=== PATIENT | female | born 1950 | race Caucasian/White ===

== ENCOUNTER 2017-01-29 17:09 | Inpatient (IN) ==
[2017-01-29] MEDS ORDERED: SALINE FLUSH 10ml SYRINGE IVF PRN (17:31)
[2017-01-29] MEDS ORDERED: ASPIRIN 81 MG CHEWABLE TABLET PO ONE (17:31)
[2017-01-29] MEDS: NITROGLYCERIN 0.4 MG SUBLINGUAL TABLET SL PRN ×3 (17:32→18:02)
--- NOTE | 2017-01-29 17:35 | Emergency Department Report ---
Chest Pain HPI - General Chief Complaint: Chest Pain <Ac Amaraln Q - 02/13/17 10:24> Stated Complaint: heart racing, cp <Ac Amaraln Q - 02/13/17 10:24> Time Seen by Provider: 01/29/17 17:22 <[place] Village[place] mcleod[place] - 02/13/17 10:24> Source: patient <Iris Fitzgerald Scott 01/29/17 17:36> Mode of arrival: wheelchair <Iris Fitzgerald 01/29/17 17:36> Limitations: no limitations <PoonamIris montanez 01/29/17 17:36> - History of Present Illness HPI narrative: Pt present with a c/o substernal chest pain and heart racing that started about 2 hours ago. Pt attempted to check her pulse and felt like it was about 100. Pt reports diaphoresis, and brief period of SOA but denies any cough or nausea <Iris Fitzgerald 01/29/17 17:36> MD complaint: chest pain <Iris Fitzgerald 01/29/17 17:36> Onset (ago): hour(s) <Iris Fitzgerald 01/29/17 17:36> Duration: constant <Iris Fitzgerald 01/29/17 17:36> Onset: during exertion <Iris Fitzgerald 01/29/17 17:36> Pain location: substernal <Iris Fitzgerald 01/29/17 17:36> Severity: moderate <Iris Fitzgerald 01/29/17 17:36> Quality: aching, heaviness <Iris Fitzgerald 01/29/17 17:36> Pain radiation: none <Iris Fitzgerald 01/29/17 17:36> Relieving factors: nothing <Iris Fitzgerald 01/29/17 17:36> Exacerbating factors: nothing <Iris Fitzgerald 01/29/17 17:36> - Related Data Home Medications Medication Instructions Recorded Confirmed LORazepam [Ativan] 0.5 mg PO DAILY PRN #0 07/22/08 01/29/17 Nitroglycerin 0.4 mg SL Q5MIN3 PRN #0 07/22/08 01/29/17 Levothyroxine Sodium 112 mcg PO ACB #0 07/25/12 01/29/17 Lisinopril 10 mg PO HS #0 07/25/12 01/29/17 hydroCHLOROthiazide 25 mg PO DAILY #0 07/25/12 01/29/17 [Hydrochlorothiazide] Aspirin [Aspirin EC] 81 mg PO DAILY 01/29/17 01/29/17 Metoprolol Succinate 50 mg PO DAILY 01/29/17 01/29/17 Omeprazole 40 mg PO ACB 01/29/17 01/29/17 Sucralfate [Carafate] 1 gm PO QID PRN 01/29/17 01/29/17 Previous Rx's Medication Instructions Recorded Atorvastatin [Lipitor] 1 tab PO HS #30 tab 01/31/17 Potassium Chloride [K-Dur] 20 meq PO WB #30 tab 01/31/17 <James Amaral Q - 02/13/17 10:24> Allergies Allergy/AdvReac Type Severity Reaction Status Date / Time No Known Drug Allergies Allergy Unknown Verified 01/29/17 17:16 <James Amaral Q - 02/13/17 10:24> Review of Systems All systems: reviewed and negative except as stated <Iris Fitzgerald 17:36> Constitutional: Denies: fever, chills <Iris Fitzgerald 01/29/17 17:36> Cardiovascular: Reports: chest pain, palpitations <Iris Fitzgerald 17:36> Respiratory: Reports: dyspnea. Denies: cough <Iris Fitzgerald 01/29/17 17:36> Gastrointestinal: Denies: abdominal pain, nausea, diarrhea <Iris Fitzgerald 01/29/17 17:36> Musculoskeletal: Denies: back pain <Iris Fitzgerald 01/29/17 17:36> Neurological: Denies: headache <Iris Fitzgerald 01/29/17 17:36> [facility] Patient Stated Medical History Other HEENT Yes: Wears glasses Hypertension Yes Gastroesophageal Reflux Yes Disease Hx Urinary Tract Infection Yes Osteoarthritis Yes Shingles Yes Clinic Medical History Myocardial infarct (Acute Medical) Chest pain due to psychological stress (Acute Medical) Chest pain not due to acute coronary syndrome (Acute Medical) <[place] Q - 02/13/17 10:24> Patient Stated Medical History Other HEENT Yes: Wears glasses Hypertension Yes Gastroesophageal Reflux Yes Disease Hx Urinary Tract Infection Yes Osteoarthritis Yes Shingles Yes Clinic Medical History Myocardial infarct (Acute Medical) Chest pain due to psychological stress (Acute Medical) Chest pain not due to acute coronary syndrome (Acute Medical) <Iris Fitzgerald 01/29/17 21:33> Physical Exam - Limitations Limitations: no limitations <Iris Fitzgerald 01/29/17 17:36> - General General appearance: alert, in no apparent distress <Iris Fitzgerald 01/29 17:36> - Normal Exams: Head:: Normocephalic without trauma <Iris Fitzgerald 01/29/17 17:36> Neck:: Full range of motion, without adenopathy <Iris Fitzgerald 17:36> Chest/Respirations:: Clear all pena, with good airflow, and symmetry bilaterally <Iris Fitzgerald 01/29/17 17:36> Cardiovascular:: Regular rate and rhythm, without murmur or gallop, Pulses 2+ all extremities, capillary refill, <2 seconds all extremities <Iris Fitzgerald 01/29/17 17:36> Abdomen:: Bowel sounds positive, soft, non-tender, non-distended <Iris Fitzgerald 01/29/17 17:36> Musculoskeletal:: No tenderness, or deformity noted, good range of motion, all extremities <Iris Fitzgerald 01/29/17 17:36> Integumentary:: No rashes <Iris Fitzgerald 01/29/17 17:36> Neurological:: Patient is alert, and oriented, cranial nerves, motor/sensory/ cerebellar, exams w/o gross deficits, to observation <Iris Fitzgerald 17:36> Psychiatric:: Patient exhibits, appropriate attention, emotion and affect < Iris Fitzgerald 01/29/17 17:36> Course Vital Signs Temperature 98.3 F 01/29/17 17:17 Pulse Rate 83 01/29/17 17:17 Respiratory Rate 22 01/29/17 17:17 Blood Pressure 193/82 H 01/29/17 17:17 Pulse Oximetry 98 01/29/17 17:17 Temperature 97.7 F 01/31/17 10:15 Pulse Rate 55 L 01/31/17 14:13 Respiratory Rate 20 01/31/17 10:15 Blood Pressure 164/80 H 01/31/17 14:13 Pulse Oximetry 98 01/31/17 14:13 <James Amaral Q - 02/13/17 10:24> Chest Pain - MDM Narrative Medical decision making narrative: Lab, EKG, and Xray reviewed. CHest pain relieved with 2 SL NTG. 2/2 onset of symptoms and time of Troponin draw repeat draw obtained and bump noted. Dr Lugo notified. Repeat EKG obtained and sent to Dr Lugo. Pt to be admitted to CCU <Iris Fitzgerald - 01/29/17 21:36> - Differential Diagnosis Likely: stable angina, unstable angina pectoris, atypical chest pain, chest pain <Iris Fitzgerald - 01/29/17 17:36> - Lab Data Attestation: I reviewed the patient's lab results. <Iris Fitzgerald - 01/29 21:36> Result diagrams: 01/29/17 17:44 01/30/17 14:01 <James Amaral Q - 02/13/17 10:24> Lab Results 01/29/17 01/29/17 01/29/17 Range/Units 17:44 17:44 20:08 WBC 9.1 (4.5-11.0) T/MM3 RBC 4.46 (4.00-5.20) M/MM3 Hgb 13.9 (12-16) GM/DL Hct 42.8 (36-46) % MCV 96.0 (80-100) UM3 MCH 31.2 (26-34) UUG MCHC 32.5 (31-37) GM/DL RDW Std Deviation 46.7 (36.9-50.2) FL Plt Count 193 (130-400) T/MM3 MPV 10.5 (9.4-12.4) UM3 Immature Gran % (Auto) 0.1 (0.0-0.5) % Neut % (Auto) 72.9 H (33-66) % Lymph % (Auto) 14.7 L (23-45) % [place] % (Auto) 11.1 H (0-9.0) % Eos % (Auto) 1.0 (0-4) % Baso % (Auto) 0.2 (0-2) % Neut # (Auto) 6.6 (1.8-7.7) T/MM3 Lymph # (Auto) 1.3 (1-4.8) T/MM3 [place] # (Auto) 1.0 H (0-0.8) T/MM3 Eos # (Auto) 0.1 (0-0.5) T/MM3 Baso # (Auto) 0.0 (0-0.2) T/MM3 Abs Immat Gran (auto) 0.01 (0.00-0.03) T/MM3 Turbidity < 20 (0-20) Sodium 143 (134-144) MEQ/L Potassium 3.1 L (3.6-5) MEQ/L Chloride 101 (98-107) MEQ/L Carbon Dioxide 28 (22-30) MEQ/L Anion Gap 14 (5-15) MEQ/L BUN 20.0 H (7-17) MG/DL Creatinine 0.9 (0.7-1.2) MG/DL GFR Calculation 63 BUN/Creatinine Ratio 22 (6-26) RATIO Glucose 100 (65-110) MG/DL Calculated Osmolality 278 (261-280) MOSM/KG Calcium 9.6 (8.4-10.2) MG/DL Icterus Index < 2 (0-7) Troponin I < 0.012 0.067 D (0-0.12) ng/ml B-Natriuretic Peptide 206 H (0-175) pg/mL Specimen Hemolysis < 15 < 15 (0-25) <James Amaral Q - 02/13/17 10:24> Lab Results 01/29/17 01/29/17 01/29/17 Range/Units 17:44 17:44 20:08 WBC 9.1 (4.5-11.0) T/MM3 RBC 4.46 (4.00-5.20) M/MM3 Hgb 13.9 (12-16) GM/DL Hct 42.8 (36-46) % MCV 96.0 (80-100) UM3 MCH 31.2 (26-34) UUG MCHC 32.5 (31-37) GM/DL RDW Std Deviation 46.7 (36.9-50.2) FL Plt Count 193 (130-400) T/MM3 MPV 10.5 (9.4-12.4) UM3 Immature Gran % (Auto) 0.1 (0.0-0.5) % Neut % (Auto) 72.9 H (33-66) % Lymph % (Auto) 14.7 L (23-45) % [place] % (Auto) 11.1 H (0-9.0) % Eos % (Auto) 1.0 (0-4) % Baso % (Auto) 0.2 (0-2) % Neut # (Auto) 6.6 (1.8-7.7) T/MM3 Lymph # (Auto) 1.3 (1-4.8) T/MM3 [place] # (Auto) 1.0 H (0-0.8) T/MM3 Eos # (Auto) 0.1 (0-0.5) T/MM3 Baso # (Auto) 0.0 (0-0.2) T/MM3 Abs Immat Gran (auto) 0.01 (0.00-0.03) T/MM3 Turbidity < 20 (0-20) Sodium 143 (134-144) MEQ/L Potassium 3.1 L (3.6-5) MEQ/L Chloride 101 (98-107) MEQ/L Carbon Dioxide 28 (22-30) MEQ/L Anion Gap 14 (5-15) MEQ/L BUN 20.0 H (7-17) MG/DL Creatinine 0.9 (0.7-1.2) MG/DL GFR Calculation 63 BUN/Creatinine Ratio 22 (6-26) RATIO Glucose 100 (65-110) MG/DL Calculated Osmolality 278 (261-280) MOSM/KG Calcium 9.6 (8.4-10.2) MG/DL Icterus Index < 2 (0-7) Troponin I < 0.012 0.067 D (0-0.12) ng/ml B-Natriuretic Peptide 206 H (0-175) pg/mL Specimen Hemolysis < 15 < 15 (0-25) <Iris Fitzgerald R - 01/29/17 21:33> - Radiology Data Attestation: I reviewed the patient's radiology results. <Iris Fitzgerald R 01/29/17 21:36> - EKG Data EKG #1 EKG attestation: Yes: I reviewed and interpreted this EKG. <July,[facility] 21:04> EKG shows normal: sinus rhythm, axis <July,[facility] 01/29/17 21:04> Rate: normal <July,[facility] 01/29/17 21:04> P waves: LAE <July,[facility] 01/29/17 21:04> ST segment depression in: II, aVF, v4, v5 <eb 01/29/17 21:04> EKG #2 EKG attestation: Yes: I reviewed and interpreted this EKG. <eb 21:40> EKG shows normal: sinus rhythm, axis, intervals, QRS complexes, ST-T waves < July,[facility] 01/29/17 21:40> Rate: normal <July,[facility] 01/29/17 21:40> Disposition Clinical Impression: Myocardial infarct Qualifiers: Myocardial infarction ST status: non-ST elevation myocardial infarction Qualified Code(s): I21.4 - Non-ST elevation (NSTEMI) myocardial infarction <CristinJames - 02/13/17 10:24> Disposition: 02 To [facility] Acute Care <James Amaral - 02/13/17 10:24> Condition: Stable <James Amaral - 02/13/17 10:24> Instructions: <James Amaral - 02/13/17 10:24> Prescriptions: New Potassium Chloride [K-Dur] 20 meq PO WB #30 tab Atorvastatin [Lipitor] 1 tab PO HS #30 tab Continue Nitroglycerin 0.4 mg SL Q5MIN3 PRN #0 PRN Reason: Chest Pain hydroCHLOROthiazide [Hydrochlorothiazide] 25 mg PO DAILY #0 Levothyroxine Sodium 112 mcg PO ACB #0 Lisinopril 10 mg PO HS #0 Omeprazole 40 mg PO ACB Aspirin [Aspirin EC] 81 mg PO DAILY Sucralfate [Carafate] 1 gm PO QID PRN PRN Reason: Prn Orders LORazepam [Ativan] 0.5 mg PO DAILY PRN #0 PRN Reason: Anxiety Metoprolol Succinate 50 mg PO DAILY Discontinued Simvastatin 40 mg PO HS #0 <James Amaral Q - 02/13/17 10:24> Referrals: Ingrid Santamaria MD [Family Provider] - <James Amaral Q - 02/18 10:24> Forms: <James Amaral Q - 02/13/17 10:24> Time of Disposition: 21:36 <Iris Fitzgerald - 01/29/17 21:36> - Seen By: midlevel <Iris Fitzgerald - 01/29/17 21:36>
[2017-01-29] MEDS ORDERED: ENOXAPARIN 120 MG/0.8 ML INJECTION SQ ONE (21:00)
[2017-01-29] MEDS ORDERED: NITROGLYCERIN 2% OINTMENT 1gm PACKET TP ONE (21:27)
[2017-01-30 00:16] VITALS: BMI 39.2
[2017-01-30] MEDS ORDERED: NS 1,000 ML IV SCH (06:00)
--- NOTE | 2017-01-30 08:27 | XRay Report ---
INDICATION: chest pain PROCEDURE: CHEST 2-VIEWS UPRIGHT (PA & LAT) Encounter: Initial COMPARISON: None FINDINGS: Hazy lower lung zone opacities and interstitial prominence. Upper lung pena are grossly clear. No pleural effusion or pneumothorax. The heart size, pulmonary vascularity and mediastinal contours are within limits. No significant skeletal abnormality seen. Impression: Basilar predominant airspace opacities could be due to mild edema or atypical/viral pneumonia. .
[2017-01-30] MEDS ORDERED: ASPIRIN 325 MG TABLET PO SCH (09:00)
[2017-01-30] MEDS ORDERED: ENOXAPARIN 120 MG/0.8 ML INJECTION SQ SCH (09:00)
[2017-01-30] MEDS: NITROGLYCERIN 2% OINTMENT 1gm PACKET TP SCH ×2 (10:27→18:42)
[2017-01-30] MEDS ORDERED: NITROGLYCERIN 0.4 MG SUBLINGUAL TABLET SL PRN (13:09)
[2017-01-30] MEDS ORDERED: LORazepam 0.5 MG TABLET PO PRN (13:09)
[2017-01-30] MEDS ORDERED: SUCRALFATE 1 GM TABLET PO PRN (13:09)
[2017-01-30] MEDS: NS 1,000 ML IV SCH (19:28)
--- NOTE | 2017-01-30 20:00 | Cardiology History & Physical ---
History of Present Illness Chief complaint: chest discomfort HPI: patient was seen about 11am Buddy is a 66-year-old female well known to me with history of a chronic exertional chest tightness and personal history of hypertension dyslipidemia and nonocclusive carotid artery stenosis. She's had previous heart catheterization in July 2008 showed some distal narrowing of the LAD where it tapers down quickly suggestive of diffuse. Normal LV function. She had an exercise stress echocardiogram in April 2015 that was negative for ischemia exercise duration 6 was 45 seconds. 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 He just got back from [place] on the day of presentation around 2:30 and found housekeepers looking into her personal calendar so got in a stressful situation there. she got home and while sitting felt her heart racing [id number] her pulse and got about 100. felt some discomfort in the middle of her chest she had a friend to help and her symptoms lasted over half an hour and we're continuing she drove her to [facility]. Patient reports a brief period of shortness of breath and diaphoresis without cough and nausea or severe dyspnea no radiation of her chest pain. The patient emergency room included giving her 2 sublingual nitroglycerin was given a complete relief of her residual chest discomfort. She was observed and a second troponin level although still within normal range has been up by 5 folds compared with a baseline which was undetectable. Her initial EKG also showed some mild ST depression in inferior also precordial leads. This improved on subsequent EKG. Potassium was 3.1. She takes a chronic diuretic HCTZ and lisinopril. After consulting with the ER medical provider said to admit the patient for possible CT/acute coronary syndrome she did receive a and aspirin nitroglycerin paste with one dose of Lovenox. Potassium supplement. she has been up to the bathroom patient had no further chest pain since admission .serial troponins and EKGs were obtained. Troponin trended down and EKG shows no acute changes. Remains in sinus rhythm Without dysrhythmia. Patient says that she doesn't exercise regularly, but this last Sunday she took a 45 minute walk O short of breath with some heart racing . She few times a month, she gets chest discomfort Does not correlate with activity or food or breathing Review of Systems All systems PM: 10-point ROS was reviewed, no additional remarkable complaints except (she had a cold 2 weeks ago) [facility] Patient Stated Medical History Other HEENT Yes: Wears glasses Hypertension Yes Gastroesophageal Reflux Yes Disease Hx Urinary Tract Infection Yes Osteoarthritis Yes Shingles Yes Clinic Medical History Myocardial infarct (Acute Medical) - Social History Smoking status: Never smoker Substance use type: does not use Current residence: Apartment/Private Home Medications Home Medications Medication Instructions Recorded Confirmed Type LORazepam [Ativan] 0.5 mg PO DAILY PRN #0 07/22/08 01/29/17 History Nitroglycerin 0.4 mg SL Q5MIN3 PRN #0 07/22/08 01/29/17 History Levothyroxine Sodium 112 mcg PO ACB #0 07/25/12 01/29/17 History Lisinopril 10 mg PO HS #0 07/25/12 01/29/17 History Simvastatin 40 mg PO HS #0 07/25/12 01/29/17 History hydroCHLOROthiazide 25 mg PO DAILY #0 07/25/12 01/29/17 History [Hydrochlorothiazide] Aspirin [Aspirin EC] 81 mg PO DAILY 01/29/17 01/29/17 History Metoprolol Succinate 50 mg PO DAILY 01/29/17 01/29/17 History Omeprazole [Omeprazole] 40 mg PO ACB 01/29/17 01/29/17 History Sucralfate [Carafate] 1 gm PO QID PRN 01/29/17 01/29/17 History Allergies Allergy/AdvReac Type Severity Reaction Status Date / Time No Known Drug Allergies Allergy Unknown Verified 01/29/17 17:16 Exam Vital signs: Temperature 97.5 F 01/30/17 16:08 Pulse Rate 68 01/30/17 16:08 Respiratory Rate 16 01/30/17 16:08 Blood Pressure 154/63 H 01/30/17 16:08 Pulse Oximetry 96 01/30/17 16:08 - Constitutional no acute distress, well developed, obese - Routine HEENT Exam Head: Present: normocephalic, atraumatic Eye: Present: EOMI, PERRL ENT: Present: mucous membranes moist - Routine Neck Exam Present: carotid bruit (soft B bruits versus radiated murmur), normal carotid upstroke. Absent: JVD, lymphadenopathy, thyromegaly - Routine Respiratory Exam Present: CTA bilaterally - Routine Cardiovascular Exam Present: RRR, murmur (2/6 systolic ejection murmur preserved A2) - Routine Abdominal Exam Present: soft, normoactive bowel sounds, non distended, non tender. Absent: organomegaly, mass - Routine Extremities Exam Present: no edema, pulses intact, normal capillary refill. Absent: cyanosis, clubbing - Routine Back/Spine/Pelvis Exam Back/Spine: Present: full ROM - Routine Skin Exam Present: intact, dry. Absent: cyanosis, erythema - Routine Neurological Exam Present: alert, oriented X3, CN II-XII intact, moving all extremities, vision grossly intact, hearing grossly intact, normal speech. Absent: motor deficit, facial asymmetry - Routine Psychiatric Exam Present: normal affect, normal thought process, cooperative, good insight, good judgment Results 01/29/17 17:44 01/30/17 14:01 Cardiac Enzymes 01/30/17 01/30/17 Range/Units 04:33 12:04 Troponin I 0.056 0.028 (0-0.12) ng/ml Comprehensive Metabolic Panel 01/30/17 Range/Units 14:01 Sodium 145 H (134-144) MEQ/L Potassium 3.6 (3.6-5) MEQ/L Chloride 107 (98-107) MEQ/L Carbon Dioxide 28 (22-30) MEQ/L BUN 17.0 (7-17) MG/DL Creatinine 0.8 (0.7-1.2) MG/DL Glucose 98 (65-110) MG/DL Calcium 9.5 (8.4-10.2) MG/DL Intake and Output 01/30/17 01/30/17 01/30/17 06:59 14:59 22:59 Intake Total 120 / 120 307.5 / 307.5 Balance 120 / 120 307.5 / 307.5 Intake: IV 277.5 / 277.5 Ns 1,000 ml @ 75 mls/hr 277.5 / 277.5 IV .[id number] GABY Rx#: [id number] Oral 120 / 120 30 Other: Urine Appearance Clear Urine Color Yellow # Voids 1 1 1 Weight 107.1 kg 115.3 kg Patient Weight 01/31/17 06:59 Weight 115.3 kg - Imaging and Cardiology Stress echo: other (negative April 2015) Echo: other (outpatient echo February 2015 ,mild to moderate aortic stenosis normal LV function) Cardiac cath: other (2008 showed a distal tapering of the LAD possible diffuse disease, no focal/ obstructive stenosis) Hospital Course This is a general summary of the patient's hospital course. For more details refer to the complete medical record. Time spent with patient: greater than 35 minutes DVT Prophylaxis: Lovenox, other (gentle ambulation) Assessment and Plan - Assessment and Plan Acute chest tightness responsive to sublingual nitroglycerin and significant delta troponin rule out CT Hypertension Dyslipidemia Carotid artery stenosis mild Aortic stenosis mild to moderate HYPOKALEMIA Admitted to CCU outpatient status ,for serial troponins and EKGs and clinical monitoring Supplement potassium Recheck potassium I complete evaluation around noon, CCU staff were look in for an empty bed for possible emergency. Patient's clinical course appears stable and agree to transfer out to surgical floor telemetry bed. Head lengthy discussion with the patient regarding options of management and the role of noninvasive testing such as a stress nuclear scan versus heart catheterization. She is counseled on the pros and cons of either approach risks and benefits and she says she was much better know for sure this patient as she lives alone and she gets scared. For definitive answer will proceed with heart catheterization. Think is reasonable given her clinical presentation, the troponin delta, his EKG abnormality, her risk factors, and the fact that we just done a stress echocardiogram about 20 months ago. Patient understood the risks and possible complications and willing to proceed heart catheter for 01/31/2017
[2017-01-30] MEDS ORDERED: ACETAMINOPHEN 325 MG TABLET PO PRN (20:17)
[2017-01-30] MEDS ORDERED: ATORVASTATIN 40 MG TABLET PO SCH (21:00)
[2017-01-31] MEDS: NITROGLYCERIN 2% OINTMENT 1gm PACKET TP SCH ×2 (01:17→08:21)
[2017-01-31] MEDS: NS 1,000 ML IV SCH (05:58)
[2017-01-31] MEDS ORDERED: LEVOTHYROXINE 112 MCG TABLET PO SCH (06:30)
[2017-01-31] MEDS ORDERED: OMEPRAZOLE 20 MG CAPSULE PO SCH (06:30)
[2017-01-31] MEDS: ASPIRIN *EC* 81 MG TABLET PO SCH ×2 (08:22→12:26)
[2017-01-31] MEDS ORDERED: HEPARIN 1,000 UNITS/500 ML PREMIX (*CVL ONLY*) IV ONE (09:13)
[2017-01-31] MEDS ORDERED: LIDOCAINE 1% (10mg/ml) 30ml SDV INJ ONE (09:13)
[2017-01-31] MEDS ORDERED: FentaNYL 100 MCG/2 ML INJECTION ONE (09:31)
[2017-01-31] MEDS ORDERED: Verapamil 5 MG/2 ML VIAL ONE (09:32)
[2017-01-31] MEDS ORDERED: NITROGLYCERIN 50MG INJECTION IV ONE (09:32)
[2017-01-31] MEDS ORDERED: MIDAZOLAM 2mg/2ml INJECTION ONE ×2 (09:32→09:47)
[2017-01-31 10:37] VITALS: RESP 20; TEMP 97.7
[2017-01-31] MEDS ORDERED: PROMETHAZINE 25 MG INJECTION IVP PRN (14:06)
[2017-01-31] MEDS ORDERED: ATROPINE 1 MG/ML INJECTION IVP PRN (14:06)
[2017-01-31] MEDS ORDERED: METOCLOPRAMIDE 10mg/2ml INJECTION IVP PRN (14:06)
[2017-01-31] MEDS ORDERED: BISACODYL 10 MG SUPPOSITORY RECTALLY PRN (14:06)
[2017-01-31] MEDS ORDERED: ACETAMINOPHEN 325 MG TABLET PO PRN (14:06)
[2017-01-31] MEDS ORDERED: NITROGLYCERIN 0.4 MG SUBLINGUAL TABLET SL PRN (14:06)
[2017-01-31] MEDS ORDERED: MORPHINE SULFATE 4mg INJECTION IVP PRN ×2 (14:06)
[2017-01-31] MEDS ORDERED: MAG-AL + SIM ORAL LIQUID 30ml PO PRN (14:06)
[2017-01-31] MEDS ORDERED: LORazepam 0.5 MG TABLET PO PRN (14:06)
[2017-01-31] MEDS ORDERED: HYDROCODONE/APAP 5mg/325mg TABLET PO PRN (14:06)
[2017-01-31] MEDS ORDERED: ONDANSETRON 4 MG/2 ML INJECTION IVP PRN (14:06)
[2017-01-31 14:13] VITALS: BP 164/80; PULSE 55; O2SAT 98
[2017-01-31] MEDS ORDERED: LISINOPRIL 10 MG TABLET PO SCH (21:00)
[2017-01-31] MEDS ORDERED: SIMVASTATIN 40 MG TABLET PO SCH (21:00)
--- NOTE | 2017-02-01 11:16 | Discharge Summary ---
Discharge Information Date of admission: 01/30/17 00:07 Attending Physician: Marck Lugo MD Primary care physician: Ingrid Santamaria MD - Discharge Diagnosis (1) Chest pain due to psychological stress Status: Acute (2) Chest pain not due to acute coronary syndrome Status: Acute - Laboratory Labs: 01/30/17 14:01 History of Present Illness HPI: patient was seen about 11am Buddy is a 66-year-old female well known to me with history of a chronic exertional chest tightness and personal history of hypertension dyslipidemia and nonocclusive carotid artery stenosis. She's had previous heart catheterization in July 2008 showed some distal narrowing of the LAD where it tapers down quickly suggestive of diffuse. Normal LV function. She had an exercise stress echocardiogram in April 2015 that was negative for ischemia exercise duration 6 was 45 seconds. 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 He just got back from [place] on the day of presentation around 2:30 and found housekeepers looking into her personal calendar so got in a stressful situation there. she got home and while sitting felt her heart racing [id number] her pulse and got about 100. felt some discomfort in the middle of her chest she had a friend to help and her symptoms lasted over half an hour and we're continuing she drove her [facility]. Patient reports a brief period of shortness of breath and diaphoresis without cough and nausea or severe dyspnea no radiation of her chest pain. The patient emergency room included giving her 2 sublingual nitroglycerin was given a complete relief of her residual chest discomfort. She was observed and a second troponin level although still within normal range has been up by 5 folds compared with a baseline which was undetectable. Her initial EKG also showed some mild ST depression in inferior also precordial leads. This improved on subsequent EKG. Potassium was 3.1. She takes a chronic diuretic HCTZ and lisinopril. After consulting with the ER medical provider said to admit the patient for possible W[place]/acute coronary syndrome she did receive a and aspirin nitroglycerin paste with one dose of Lovenox. Potassium supplement. she has been up to the bathroom patient had no further chest pain since admission .serial troponins and EKGs were obtained. Troponin trended down and EKG shows no acute changes. Remains in sinus rhythm Without dysrhythmia. Patient says that she doesn't exercise regularly, but this last Sunday she took a 45 minute walk O short of breath with some heart racing . She few times a month, she gets chest discomfort Does not correlate with activity or food or breathing 01/31/17 11:12 Arletta had no further cp . none since admission. no soa remains in NSR w/o arrythmia. herat cath showed nonocclusive mild CAD. this is supportive that observation for possible [place] d/t delta troponin was not substantiated by coronary angiogram findings. also no arrythmias on telemtry to explain her herat racing. It appears thats all related to emotional stress and possibly GERD. statin Rx adjusted according to lipid profile and the presence of CAD. pt is ambulating and feeling well w/o any c/o. Hospital Course This is a general summary of the patient's hospital course. For more details refer to the complete medical record. Time spent with patient: greater than 35 minutes Exam Vital signs: Temperature 97.7 F 01/31/17 10:15 Pulse Rate 55 L 01/31/17 14:13 Respiratory Rate 20 01/31/17 10:15 Blood Pressure 164/80 H 01/31/17 14:13 Pulse Oximetry 98 01/31/17 14:13 - Constitutional no acute distress - Routine HEENT Exam Head: Present: normocephalic, atraumatic Eye: Present: EOMI ENT: Present: mucous membranes moist Nose: moist mucous membranes - Routine Neck Exam Present: supple, carotid bruit, normal carotid upstroke. Absent: JVD, lymphadenopathy, thyromegaly - Routine Respiratory Exam Present: CTA bilaterally - Routine Cardiovascular Exam Present: RRR, murmur - Routine Abdominal Exam Present: soft, normoactive bowel sounds, non distended - Routine Extremities Exam Present: no edema, non tender. Absent: cyanosis, clubbing Results 01/29/17 17:44 01/30/17 14:01 Discharge Plan - Med Rec/Dispo Referrals/Follow Up: Marck Lugo MD [Physician] - 03/19/17 3:45 pm Ingrid Santamaria MD [Family Provider] - 02/14/17 3:15 pm Behzaduvheather [place] [facility] [place], Chest Pain (DC) Prescriptions: New Potassium Chloride [K-Dur] 20 meq PO WB #30 tab Atorvastatin [Lipitor] 1 tab PO HS #30 tab Continue Nitroglycerin 0.4 mg SL Q5MIN3 PRN #0 PRN Reason: Chest Pain hydroCHLOROthiazide [Hydrochlorothiazide] 25 mg PO DAILY #0 Levothyroxine Sodium 112 mcg PO ACB #0 Lisinopril 10 mg PO HS #0 Omeprazole 40 mg PO ACB Aspirin [Aspirin EC] 81 mg PO DAILY Sucralfate [Carafate] 1 gm PO QID PRN PRN Reason: Prn Orders LORazepam [Ativan] 0.5 mg PO DAILY PRN #0 PRN Reason: Anxiety Metoprolol Succinate 50 mg PO DAILY Discontinued Simvastatin 40 mg PO HS #0 - Disposition 01 Discharged Home, Self-Care - Dismissal Complete Discharge Instructions are:: Complete
--- NOTE | 2017-02-02 12:59 | Cardiac Catheterization Report ---
DATE OF SERVICE January 30, 2017 PROCEDURES PERFORMED 1. Transradial left heart catheterization, LV gram, coronary angiogram. 2. Moderate IV conscious sedation. Estimated time is 20 minutes. INDICATION A very pleasant lady with hypertension and dyslipidemia who presented with chest pressure worse by emotional stress. She had a significant delta in her serial troponin levels that did not go outside normal range. She was counseled on the role of noninvasive versus invasive testing and the pros and cons for either approach and she opted for invasive procedure, understanding the risks and benefits and agreed to proceed for definitive answer. The patient is known to have mild aortic valve stenosis. NARRATIVE OF PROCEDURE The patient was brought to the cardiac cath laboratory, received IV sedation, Versed and fentanyl. Please refer to nursing notes for exact amounts given. Under sterile technique, in the right wrist, I injected lidocaine 1% approximately 1.5 ml followed by insertion of a 6-[place] slender sheath using modified Seldinger percutaneous technique through the right radial artery. The sidearm was aspirated and flushed. Intraarterial drug combo including verapamil 5 mg, nitroglycerin 300 units and heparin 3000 units was administered. I used a [place] catheter to perform above-mentioned procedures. Procedure was well tolerated with no immediate complications. FINDINGS Hemodynamics: LVEDP was mildly elevated. There was only a very mild peak-to- peak pressure gradient, less than 10 mmHg. LVEDP was in the low 20s, consistent with diastolic dysfunction. Right coronary artery is a [id number] caliber vessel. It is dominant. There is some mild catheter-induced spasm noted. There is also mild stenosis noted in the mid segment, does not appear hemodynamically significant, angiographically estimated about 35%. Distally, a small RPDA, RPLB branch appears free from occlusive disease. Left main coronary artery is large and normal. LAD is a large vessel, gives origin to a first diagonal branch that is medium in caliber. It is free from occlusive disease. Second diagonal branch is small. The LAD system appears angiographically normal. The left circumflex artery is a large nondominant vessel, gives origin to multiple obtuse marginal branches. A fairly large size PLB branch is noted and appears angiographically normal. LV size and contractility appear normal with ejection fraction estimated about 70% without regional wall motion abnormality. IMPRESSION 1. No occlusive coronary disease, RCA exhibits mid stenosis of 35%, that warrants medical therapy. 2. Normal size and systolic function. 3. Elevated filling pressures consistent with diastolic dysfunction. 4. Very mild transaortic pressure gradient, [id number] less than 10 mmHg, indicative of mild aortic stenosis. In summary, the coronary angiogram findings do not support that the delta troponin is related to an acute GA. Angiogram findings are consistent with noncardiac chest pain and no acute coronary syndrome. MTDD
== END 2017-01-31 14:55 | disposition home or self-care (01) | DRG 287 ==
LOC: ED 17:09 → CCU 17:09 → OBSVTOIN 01-30 00:07 → SRG 01-30 13:23
PROVIDERS: ADMIT Internal Medicine Cardiovascular Disease; ATTEND Internal Medicine Cardiovascular Disease